=== PATIENT | male | born 1970 | race Two or more races ===

== ENCOUNTER 2019-10-04 20:19 | Emergency (ER) | payer MEDICAID ==
[~2019-10-04] VITALS: Ht 180.3 cm; Wt 115.7 kg
--- NOTE | 2019-10-04 20:28 | NUR ---
C/C SEVERE LOWER ABD PAIN SINCE AFTERNOON, DENIES N/V, -DYSURIA, -HEMATURIA, VSS TO ER BED 4, AT BEDSIDE
[2019-10-04] MEDS ORDERED: ONDANSETRON HCL/PF 4 MG/2 ML VIAL IVP ONE (20:30)
[2019-10-04] MEDS ORDERED: MORPHINE SULFATE INJ 2 MG/ML DISP.SYRIN IV ONE (20:30)
[2019-10-04] MEDS ORDERED: ONDANSETRON HCL/PF 4 MG/2 ML VIAL ONE (20:31)
[2019-10-04] MEDS ORDERED: MORPHINE SULFATE INJ 4 MG/ML DISP.SYRIN ONE (20:31)
[2019-10-04 20:43] LABS: BASOPHILS % (AUTO) 0.5 % (0.0-2.0); EOSINOPHILS % (AUTO) 4.2 % (0.0-6.0); HEMATOCRIT 41 % (39-51); HEMOGLOBIN 13.9 g/dL (13.5-17.5); LYMPHOCYTES # (AUTO) 2.6 /CMM (0.8-4.8); LYMPHOCYTES % (AUTO) 30.1 % (20.0-44.0); MEAN CORPUSCULAR HGB CONC 34 g/dl (31.0-36.0); MEAN CORPUSCULAR VOLUME 97 fL (80-96); MONOCYTES # (AUTO) 0.7 /CMM (0.1-1.30); MONOCYTES % (AUTO) 8.2 % (2.0-12.0); PLATELET COUNT (AUTO) 199 /CMM (150-450); RED BLOOD CELL COUNT(AUTO) 4.21 MIL/uL (4.5-6.0); WHITE BLOOD COUNT (AUTO) 8.7 K/uL (4.3-11.0)
[2019-10-04 20:51] LABS: CALCIUM, SERUM 8.8 mg/dL (8.5-10.1); CREATININE 0.9 mg/dL (0.6-1.3); POTASSIUM 3.9 mmol/L (3.5-5.1)
--- NOTE | 2019-10-04 20:53 | NUR ---
PT TAKEN TO RADIOLOGY FOR CT
[2019-10-04 20:56] LABS: ALBUMIN 3.8 g/dL (3.4-5.0); BILIRUBIN,DIRECT 0.1 mg/dL (0.0-0.2); BILIRUBIN,TOTAL 0.6 mg/dL (0.2-1.0); TOTAL PROTEIN, SERUM 7.2 g/dL (6.4-8.2)
--- NOTE | 2019-10-04 20:57 | NUR ---
PT RETURNED FROM RADIOLOGY
[2019-10-04 21:20] LABS: APPEARANCE,URINE Clear (CLEAR); BILIRUBIN,URINE Negative (NEGATIVE); BLOOD, URINE Trace-intact Ery/uL (NEGATIVE); COLOR,URINE Yellow (YELLOW); KETONES,URINE Negative (NEGATIVE); LEUKOCYTE ESTERASE ,URINE Negative (NEGATIVE); NITRITE, URINE Negative (NEGATIVE); PROTEIN,URINE Negative (NEGATIVE); UGLUCOSE Negative (NEGATIVE); UROBILINOGEN,URINE 0.2 EU/dL (0.2)
[2019-10-04 21:23] LABS: BACTERIA,URINE Few /HPF (None Seen); SQUAMOUS EPITHELIAL CELL,UR Few /HPF (None Seen); WBC,URINE 0-2 /HPF (0-3)
--- NOTE | 2019-10-04 22:29 | NUR ---
Patient discharged to home in stable condition. Written and verbal after care instructions given. Patient verbalizes understanding of instruction.
[2019-10-04 22:30] VITALS: BP 167/139
== END 2019-10-04 22:30 | disposition home or self-care (01) ==
LOC: ER 20:21
DX: N23 Unspecified renal colic (principal); R31.9 Hematuria, unspecified; I10 Essential (primary) hypertension; Z95.818 Presence of other cardiac implants and grafts; Z60.2 Problems related to living alone
CPT/HCPCS: 36415; 71045; 74176; 80048; 80076; 81001; 83690; 85025; 93005; 96374; 96375; 99284; J2270; J2405; 81000-TC

== ENCOUNTER 2020-05-21 15:27 | Emergency (ER) | payer MEDICAID ==
[~2020-05-21] VITALS: Ht 180.3 cm; Wt 115.7 kg
--- NOTE | 2020-05-21 15:38 | NUR ---
PT AMBULATORY TO ER BED 11 PT CONCERNED ABOUT COUGHING OUT BLOOD YESTERDAY, PT DENIES ANY CHEST PAIN BUT STATES WAS ADVISED BY PMD TO GO TO ER. PT GOWNED AND PPLACED ON MONITOR. 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 AWAITING MD ANGULO.
--- NOTE | 2020-05-21 16:01 | NUR ---
DR ARROYO AT BEDSIDE FOR EVAL.
--- NOTE | 2020-05-21 16:10 | NUR ---
IV LINE STARTED BLOOD DRAWN AND SENT TO LAB.
[2020-05-21 16:20] LABS: BASOPHILS # (AUTO) 0.1 /CMM (0.0-0.2); BASOPHILS % (AUTO) 1.3 % (0.0-2.0); EOSINOPHILS % (AUTO) 4.7 % (0.0-6.0); HEMATOCRIT 40 % (39-51); HEMOGLOBIN 13.9 g/dL (13.5-17.5); LYMPHOCYTES # (AUTO) 2.4 /CMM (0.8-4.8); LYMPHOCYTES % (AUTO) 28.8 % (20.0-44.0); MEAN CORPUSCULAR HGB CONC 34 g/dl (31.0-36.0); MEAN CORPUSCULAR VOLUME 99 fL (80-96); MONOCYTES # (AUTO) 0.6 /CMM (0.1-1.30); MONOCYTES % (AUTO) 7.1 % (2.0-12.0); NEUTROPHILS # (AUTO) 4.8 /CMM (1.8-8.9); NEUTROPHILS % (AUTO) 58.1 % (43.0-81.0); PLATELET COUNT (AUTO) 191 /CMM (150-450); RED BLOOD CELL COUNT(AUTO) 4.09 MIL/uL (4.5-6.0); WHITE BLOOD COUNT (AUTO) 8.3 K/uL (4.3-11.0)
[2020-05-21 16:29] LABS: CARBON DIOXIDE 27 mmol/L (21-32); CHLORIDE 106 mmol/L (98-107); GLUCOSE 107 mg/dL (74-106); POTASSIUM 3.7 mmol/L (3.5-5.1); SODIUM SERUM 141 mmol/L (136-145); UREA NITROGEN, BLOOD 13 mg/dL (7-18)
--- NOTE | 2020-05-21 16:35 | NUR ---
PT TO RADIOLOGY FOR CTA CHEST VIA [place].
[2020-05-21] MEDS ORDERED: CT SWABBABLE VALVE TRANS SET 1 EA INFUS.SET MC ONE (16:38)
[2020-05-21] MEDS ORDERED: IV NS 0.9% 250 ML IV ONE (16:38)
[2020-05-21] MEDS ORDERED: IOHEXOL-350 100 ML VIAL IV ONE (16:38)
[2020-05-21 16:52] LABS: ALBUMIN 3.6 g/dL (3.4-5.0); BILIRUBIN,DIRECT 0.2 mg/dL (0.0-0.2); TOTAL PROTEIN, SERUM 6.9 g/dL (6.4-8.2)
--- NOTE | 2020-05-21 18:08 | NUR ---
DR ARROYO BACK AT BEDSIDE TALKING TO PT ABOUT PLAN OF CARE.
[2020-05-21 18:39] VITALS: BP 144/86
--- NOTE | 2020-05-21 18:39 | NUR ---
Patient discharged to home in stable condition. Written and verbal after care instructions given. Patient verbalizes understanding of instruction.IV removed. Catheter intact and site benign. Pressure and 4x4 applied to site. No bleeding noted.
== END 2020-05-21 18:40 | disposition home or self-care (01) ==
LOC: ER 15:32
DX: R04.2 Hemoptysis (principal); I10 Essential (primary) hypertension; Z98.890 Other specified postprocedural states; Z60.2 Problems related to living alone
CPT/HCPCS: 36415; 71045; 71275; 80048; 80076; 84484; 85025; 85730; 93005 ×2; 99285; J7050; Q9967